=== PATIENT | male | born 1935 | race Caucasian/White ===

== ENCOUNTER 2018-03-16 22:00 | Inpatient (IN) ==
[2018-03-17 00:35] LABS: Anion Gap 15 mmol/L (10-20); BUN (Urea Nitrogen) 28 mg/dL (8.4-25.7); Calc. Creatinine Clearance 0 mL/min (70-130); Calcium 8.5 mg/dL (7.8-10.44); Carbon Dioxide 20 mmol/L (23-31); Chloride 117 mmol/L (98-107); Estimated GFR-MDRD 57; Glucose 167 mg/dL (83-110); Sodium 148 mmol/L (136-145)
[2018-03-17 01:02] LABS: Platelet Count 925 thou/uL (130-400); White Blood Cell (WBC) Count 70.1 thou/uL (4.8-10.8)
[2018-03-17 01:08] LABS: Anisocytosis SLIGHT = 6-15 cells (100X) (0-5/hpf); Band 11 % (5-11); Hemoglobin 9.8 g/dL (14.0-18.0); Lymphocytes 6 % (21-51); MDiff Complete? YES; Mean Corpuscular Hemoglobin 30.3 pg (27.0-31.0); Mean Platelet Volume 8.7 fL (7.4-10.4); Monocytes 4 % (0-10); Neutrophil 71 % (42-75); Polychromasia SLIGHT = 2-3 cells (100X) (0-2/hpf); RBC Distribution Width 17.5 % (11.5-14.5); Red Blood Cell (RBC) Count 3.22 mill/uL (4.70-6.10); Reflex for Review?? YES
[2018-03-17] MEDS ORDERED: Piperacillin/Tazobactam 4.5 GM VIAL ONE (01:21)
[2018-03-17] MEDS ORDERED: Acetaminophen 650 MG Suppository ONE (01:44)
[2018-03-17] MEDS ORDERED: Senokot S 8.6-50 MG TAB PO PRN (02:01)
[2018-03-17] MEDS ORDERED: Acetaminophen 325 MG TAB PO PRN (02:01)
[2018-03-17] MEDS ORDERED: Bisacodyl 5 MG TAB PO PRN (02:01)
[2018-03-17] MEDS ORDERED: Dextrose 5 % And 0.9 % NaCl 1,000 ML IV SCH (02:15)
[2018-03-17] MEDS ORDERED: Dextrose 5% in Water 1,000 ML IV SCH (02:30)
[2018-03-17 03:39] VITALS: BMI 21.9
--- NOTE | 2018-03-17 04:06 | HP ---
CHIEF COMPLAINT: Transfer from [facility] for altered mental status. HISTORY OF PRESENT ILLNESS: The patient is a very pleasant 83-year-old male who is a snf re sident who initially presented to [facility] for altered mental status. I am unable to get a good histo ry from the patient since he is unable to provide me one. However, per documentation per documentati on, the patient is normally more responsive; however, today was found to be less responsive. So, he was taken to [facility] for further evaluation. There was some mentioning that the patient also had fev ers at the snf. The patient at [facility] was initially treated for sepsis, was given vancomyc in and Zosyn and also the patient had a fever of 102 at [facility]. 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 He also had a chest x-ray which indicated no acute findings. However, the patient was found to have a significantly elevated leukocytosis of 76,000 and also had e levated platelets of 1135. At this time, it was also noted that the patient had 3% blasts that were noted in the CBC. The patient was transferred here since [facility] does not have an oncologist. PAST MEDICAL HISTORY: This is all through the records. 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 This is per the PCP's note that was done in 2013. MEDICATIONS: The patient is on hydroxyurea 500 mg once a day, meclizine 25 mg daily, metoprolol 25 m g day, Namenda 10 mg twice a day, Neurontin 300 mg twice a day, simethicone 80 mg daily, thiamine 100 mg daily, tramadol 50 mg daily, allopurinol 150 mg daily, amlodipine 2.5 daily, Aricept 10 mg daily, aspirin 81 mg daily, Claritin 10 mg daily, Cymbalta 60 mg daily, fenofibrate 200 mg daily, folic aci d daily. PAST SURGICAL HISTORY: The patient has a surgical history, unable to get from this patient and also there is nothing mentioned in the charts. REVIEW OF SYSTEMS: Unable to obtain. SOCIAL HISTORY: The patient is unknown since patient is unable to provide me this information. FAMILY HISTORY: Again, I am unable to obtain this information. ADVANCED DIRECTIVE: There is a directive; however, I do not know if this patient is a DNR. There is a Eliseo Boo who is a power of deputy attorney general, phone number is [phone], which I will call. PHYSICAL EXAMINATION: VITAL SIGNS: The patient's temperature is currently 98.8. His blood pressure is 170/80, heart rate of 110, respirations are 16. He is 95% on room air. GENERAL: He is awake, follows commands, but is not oriented x3 at all. HEENT: The patient has significant dry mucous membrane. He does have significant amount of crusting in his mouth. CARDIOVASCULAR: S1, S2 present. No murmurs, rubs or gallops. LUNGS: Clear to auscultation. No rhonchi or wheezes noted. ABDOMEN: Soft, nontender. Bowel sounds are present x2. EXTREMITIES: No edema. Pedal pulses are present x2. NEUROLOGIC: Neurovascular levin, the patient is able to move all four extremities; however, I have no t walked the patient. SKIN: No cuts or lesions are noted. LABORATORY DATA: We had rechecked the lab here which indicated in the CBC: WBCs were 70.1 as compar ed to the one that was done in [facility] which was 76.4. Hemoglobin of 10.4, hemoglobin here was 9.8. His platelets at [facility] was 1135, they were at 925. The specimens for pathology for review, he glass s have blast at [facility]. Chemistry panel: Sodium of 148 and his sodium was 149 at [facility]. Potassi um was 3.8, potassium here was 4.0. His BUN was 32, his BUN here was 28, creatinine of 1.22 and his BNP was 124. He also had a lactic acid which was one at [facility]. Influenza was negative. Urine pro calcitonin was 0.88. Urine indicated he has got some leukocyte esterase, nitrites were negative and wbcs were 1-5. CK was negative. Troponin was negative. ASSESSMENT AND PLAN: The patient is an 83-year-old male who presents to the hospital with altered me ntal status. Initially there was transferred to us from [facility]. 1. Acute metabolic encephalopathy, most likely secondary to his significant leukocytosis. This maikel ent most likely has an underlying malignancy with 3% blasts that was noted in [facility] CBC either CML or AML. He also has elevated platelets. I will start patient on aspirin. He has been on hydroxyure a, which is per the notes stated that he is taking it for the squamous cell carcinoma of the face. W e will continue that. Also, we will consult Oncology. The patient at this time does not need aphere sis. His WBCs is less than 100,000; however, the mental status change is little concerning. The pat ient does follow commands. We will continue to monitor. Also, we will start the patient on some gen tle hydration and we will also give the patient broad spectrum antibiotics. Since he did have a feve r; however, I believe this fever could be secondary to his underlying malignancy. 2. Dehydration. His sodium level is 148. We will start the patient on some D5 water and continue t o monitor. 3. Severe leukocytosis and thrombocytosis. Again this is most likely secondary to underlying malign trip. He did the smear is for pathology for review. He did have 3% blasts that was noted in the CBC that was done at [facility]. We will continue to monitor. We will start patient on aspirin and we sofy l continue the hydroxyurea and also will continue some IV fluids. 4. Deep venous thrombosis prophylaxis. We will put patient on either heparin or Lovenox. The patient currently is a FULL CODE. I will try and see if I can call the snf and also get in touch with a Eliseo Boo, phone number [phone], who is the POA to get a better understandin g of this patient's code status. I do not know if this leukocytosis is new since I do not have a pre vious leukocytosis. I believe this patient has 2 account numbers, I did review his last time when he was here, his WBCs were 23; however, I do not have another CBC in the computer for this patient.
[2018-03-17] MEDS: Piperacillin/Tazobactam 3.375 GM in Sodium Chloride 0.9% 100 ML IVPB SCH ×4 (05:43→23:22)
[2018-03-17 05:46] LABS: Anion Gap 12 mmol/L (10-20); BUN (Urea Nitrogen) 25 mg/dL (8.4-25.7); Calc. Creatinine Clearance 45 mL/min (70-130); Calcium 8.2 mg/dL (7.8-10.44); Carbon Dioxide 20 mmol/L (23-31); Chloride 120 mmol/L (98-107); Estimated GFR-MDRD 67; Glucose 184 mg/dL (83-110); Potassium 3.4 mmol/L (3.5-5.1); Sodium 149 mmol/L (136-145)
[2018-03-17 06:11] LABS: Anisocytosis SLIGHT = 6-15 cells (100X) (0-5/hpf); Band 8 % (5-11); Hemoglobin 8.8 g/dL (14.0-18.0); Lymphocytes 5 % (21-51); MDiff Complete? YES; Mean Corpuscular HGB CONC 29.9 g/dL (32.0-36.0); Mean Corpuscular Hemoglobin 30.4 pg (27.0-31.0); Mean Platelet Volume 8.5 fL (7.4-10.4); Monocytes 11 % (0-10); Neutrophil 74 % (42-75); PLT Morphology Comment Appears Increased; Platelet Count 805 thou/uL (130-400); Polychromasia SLIGHT = 2-3 cells (100X) (0-2/hpf); RBC Distribution Width 17.2 % (11.5-14.5); White Blood Cell (WBC) Count 64.2 thou/uL (4.8-10.8)
[2018-03-17] MEDS: Aspirin 300 MG Suppository PR SCH (08:31)
[2018-03-17] MEDS: Heparin 5,000 UNITS/ML VIAL SC SCH ×3 (08:35→20:21)
[2018-03-17] MEDS ORDERED: Hydroxyurea 500 MG CAP PO SCH (09:00)
[2018-03-17] MEDS ORDERED: Prevnar 13-Val Conj/PF 0.5 ML SYRINGE IM ONE (09:00)
[2018-03-17 10:24] LABS: Reticulocyte Count 3.9 % (0.5-1.5)
--- NOTE | 2018-03-17 11:33 | PDOC.PN ---
- Subjective Encounter Start Date: 03/17/18 Encounter Start Time: 11:25 Subjective: f/u for suspected sepsis and leukemia tx with Vanc/Zosyn as well as -: Hydroxyurea and ASA. Nephew states he is DNR. Baseline severe dementia -: and limited mobility. Poor appetite and po intake at half-way. - Objective Resuscitation Status: Resuscitation Status DNR:Do Not Resuscitate MAR Reviewed: Yes Vital Signs & Weight: Vital Signs (12 hours) Temp Pulse Resp BP Pulse Ox 03/17/18 07:53 97 03/17/18 07:49 96.9 F L 88 18 171/76 H 97 03/17/18 04:04 100 03/17/18 03:46 87 162/69 H 03/17/18 03:34 96.7 F L 94 16 188/79 H 100 Weight Weight 131 lb 11.2 oz I&O: 03/16/18 03/17/18 03/18/18 06:59 06:59 06:59 Intake Total 151 Output Total 150 Balance 1 Result Diagrams: 03/17/18 05:10 03/17/18 05:10 Additional Labs: Laboratory Tests 03/16/18 03/16/18 03/16/18 23:14 23:14 23:14 WBC 70.1 H* Hgb 9.8 L MCV 101.0 H Plt Count 925 H* Retic Count Immature Retic Fraction Sodium 148 H BUN 28 H Creatinine 1.22 Estimated GFR (MDRD) 57 Uric Acid B-Natriuretic Peptide 124.9 H 03/17/18 03/17/18 05:10 05:10 WBC Hgb MCV Plt Count Retic Count 3.9 H Immature Retic Fraction 0.519 H Sodium BUN Creatinine Estimated GFR (MDRD) Uric Acid 5.4 B-Natriuretic Peptide EKG Reviewed by me: Yes (Tele - SR) Phys Exam - Physical Examination Constitutional: NAD opens eyes, states a few words oral mucosa dry HEENT: PERRLA, sclera anicteric Neck: no nodes, no JVD, supple, full ROM Respiratory: no wheezing, no rales, no rhonchi, clear to auscultation bilateral S1, S2 Cardiovascular: RRR, no significant murmur, no rub, gallop Gastrointestinal: soft, non-tender, no distention, positive bowel sounds Musculoskeletal: no edema, pulses present Neurological: moves all 4 limbs A x O x 1 Deviation from normal: poor skin turgor Skin: cap refill <2 seconds Deviation from normal: Gaspar with dark urine Dx/Plan (1) Sepsis Code(s): A41.9 - SEPSIS, UNSPECIFIED ORGANISM Status: Acute Comment: Suspected, continue Vancomycin/Zosyn, await blood/Ucx results, continue IVF's (2) Leukemia Code(s): 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 acute/subacute, Hematology consult, continue Hydroxyurea and ASA, IVF 's, serial CBC (3) LIZZY (acute kidney injury) Code(s): N17.9 - ACUTE KIDNEY FAILURE, UNSPECIFIED Status: Acute Comment: Continue IVF's, avoid nephrotoxic meds and limit contrast exposure (4) Hypernatremia Code(s): E87.0 - HYPEROSMOLALITY AND HYPERNATREMIA Status: Acute Comment: Secondary to dehydration, serial monitoring, increase D5 1/2 NS 125ml/h (5) Dehydration Code(s): E86.0 - DEHYDRATION Status: Acute Comment: Encourage increased free -H2O intake, IVF's (6) Advanced dementia Code(s): F03.90 - UNSPECIFIED DEMENTIA WITHOUT BEHAVIORAL DISTURBANCE Status: Acute (7) Physical deconditioning Code(s): R53.81 - OTHER MALAISE Status: Chronic Comment: PT evaluation, baseline use of wheelchair and 1-2 person assist for transfers - Plan plan discussed w/ family, continue antibiotics, PT/OT, social media specialist, DVT proph w/SCDs Continue supportive mgmt -: Continue Vancomycin/Zosyn -: Increase IVF's 125ml/h -: Medical oncology/hematology consult -: Code Status: DNR confired with MPOA * AM lab: CMP, CBC
--- NOTE | 2018-03-17 11:44 | CON ---
DATE OF CONSULTATION: 03/17/2018 REASON FOR CONSULTATION: Leukocytosis and thrombocytosis. HISTORY: This is an 83-year-old male with a history of Alzheimer disease. He was initiall y seen at the [facility] with fever of 102 and altered mental status. CBC showed WBC of 76,000 with a platelet count of 11.35 and 3% blasts. He was transferred to [facility] because there is no oncologist at [facility]. The patient was started on hydr oxyurea 500 mg daily yesterday. He was not able to provide much history because of impaired mentatio n. Apparently, he had been more responsive in the past in the [facility]. At the present time, th e patient is barely arousable when he is not able to answer any question. Occasionally, he opens his eyes and then closure . PAST MEDICAL HISTORY: From the admitting H&P includes Alzheimer disease, depression, diabetes, gout, hypertension, dyslipidemia, and a squamous cell carcinoma of the skin of the face. CURRENT MEDICATIONS: Aspirin 300 mg p.o. daily, heparin 5000 units subcu t.i.d., hydroxyurea 500 mg p.o. daily, piperacillin/tazobactam q.6 hours; vancomycin 1 gram daily, dose to be adjusted by Sferra. REVIEW OF SYSTEMS: Could not be performed because of patient's mental status. FAMILY AND SOCIAL HISTORY: Rest of the family and social history was also not able to be obtained. PHYSICAL EXAMINATION: GENERAL: The patient is not responding to any questions and is barely arousable. Physical examinati on was limited. HEENT: Unremarkable. LYMPH NODES: Not palpable in cervical, supraclavicular, axillary or inguinal area. CHEST: Clear to percussion and auscultation. CARDIOVASCULAR: Heart S1, S2. No obvious murmur. ABDOMEN: Soft. Bowel sounds were present. EXTREMITIES: Without pedal edema or calf tenderness. NEUROLOGIC: The patient was moving all 4 extremities. He has also is in diaper. LABORATORY AND X-RAY FINDINGS: CBC today showed WBC of 64.2 with hemoglobin of 8.8 and platelet coun t of 805,000. MCV is 101. Differential showed 74% neutrophils, 8 bands, 5 lymphs, 11 monocytes and 2 basophils. A peripheral smear was reviewed. Red cells are slightly macrocytic. Nucleated red jocelyn ls were frequently encountered. White cells are increased in number. There is frequent hypersegment ation of polys. Basophils very easily identifiable and appeared to be more than 2% reported in the d ifferential count. Rare blast-like cells were seen. Platelets are increased in number. Chemistry p rofile: Sodium 149, potassium 3.4, chloride 102, carbon dioxide 20, creatinine 1.06, blood sugar of 184. There are no imaging studies from [facility]. He had CT scan of the head at the [facility] showing ventriculomegaly suggestive of NPH and there was question about abn ormal density in sella turcica. Chest x-ray showed no acute findings. ASSESSMENT AND RECOMMENDATIONS: This patient has myeloproliferative syndrome with elevated white jocelyn l count and platelet count and anemia. He has Alzheimer disease and seems to be at least at this bharathi e bedbound. I am not sure how aggressive one should be. For now, he is on aspirin and I have increa sed his dose of hydroxyurea to 1 gram daily. I have ordered JAK2 mutation analysis and cytogenetics and flow cytometry on peripheral blood. I tried to get hold of Eliseo who has power of securities attorney, but was able to reach only his answering machine on phone. Thanks very much for asking me to participate in this patient's care. He will be followed by Oncolog y Service.
[2018-03-17] MEDS: Dextrose 5% in Water 1,000 ML IV SCH ×2 (12:59→15:35)
[2018-03-17] MEDS: Vancomycin HCl 1 GM in Premix Bag 1 BAG IVPB SCH (20:21)
[2018-03-17] MEDS: Hydroxyurea 500 MG CAP PO SCH (20:21)
[2018-03-18] MEDS: Piperacillin/Tazobactam 3.375 GM in Sodium Chloride 0.9% 100 ML IVPB SCH ×3 (05:12→18:24)
[2018-03-18 05:54] LABS: ALT (SGPT) 13 U/L (8-55); AST (SGOT) 24 U/L (5-34); Albumin 2.9 g/dL (3.4-4.8); Alkaline Phosphatase 139 U/L (40-150); Anion Gap 12 mmol/L (10-20); BUN (Urea Nitrogen) 19 mg/dL (8.4-25.7); Bilirubin, Total 0.8 mg/dL (0.2-1.2); Calc. Creatinine Clearance 45 mL/min (70-130); Calcium 8.2 mg/dL (7.8-10.44); Carbon Dioxide 21 mmol/L (23-31); Chloride 115 mmol/L (98-107); Estimated GFR-MDRD 67; Globulin 2.4 g/dL (2.4-3.5); Glucose 174 mg/dL (83-110); Iron Binding Capacity, Total 221 mcg/dL (261-462); Potassium 3.2 mmol/L (3.5-5.1); Protein, Total 5.3 g/dL (5.8-8.1); Sodium 145 mmol/L (136-145)
[2018-03-18 06:25] LABS: Folate (Folic Acid) 16.9 ng/mL (7.0-31.4)
[2018-03-18] MEDS: Heparin 5,000 UNITS/ML VIAL SC SCH ×3 (08:34→21:05)
[2018-03-18] MEDS: Aspirin 300 MG Suppository PR SCH (08:34)
[2018-03-18] MEDS: Hydroxyurea 500 MG CAP PO SCH (08:34)
[2018-03-18] MEDS: Dextrose 5% in Water 1,000 ML IV SCH ×2 (08:35→15:24)
[2018-03-18 09:27] LABS: Hemoglobin 8.6 g/dL (14.0-18.0); Mean Corpuscular Hemoglobin 30.2 pg (27.0-31.0); Mean Platelet Volume 8.6 fL (7.4-10.4); Platelet Count 764 thou/uL (130-400); Red Blood Cell (RBC) Count 2.83 mill/uL (4.70-6.10); White Blood Cell (WBC) Count 63.8 thou/uL (4.8-10.8)
[2018-03-18 10:07] LABS: Band 9 % (5-11); Lymphocytes 8 % (21-51); MDiff Complete? YES; Metamyelocyte 3 % (0-0); Monocytes 5 % (0-10); Neutrophil 71 % (42-75); Nucleated RBC 2 % (0); PLT Morphology Comment Appears Increased; Polychromasia MODERATE = 3-4 cells (100X) (0-2/hpf); Reflex for Review?? NO; Vacuoles MODERATE
--- NOTE | 2018-03-18 15:05 | PDOC.PN ---
- Subjective Encounter Start Date: 03/18/18 Encounter Start Time: 15:02 Subjective: nsg notes rev, fanny ovn, waves when greeted and interactive but not -: verbalizing; reportedl was verbalizing earlier in the AM - Objective Resuscitation Status: Resuscitation Status DNR:Do Not Resuscitate Vital Signs & Weight: Vital Signs (12 hours) Temp Pulse Pulse Resp BP BP BP 03/18/18 11:16 96.8 F L 75 18 126/60 03/18/18 10:32 77 136/64 03/18/18 07:42 03/18/18 07:39 96.3 F L 76 16 162/73 H 03/18/18 04:00 98.1 F 78 20 130/63 Pulse Ox 03/18/18 11:16 92 L 03/18/18 10:32 03/18/18 07:42 99 03/18/18 07:39 99 03/18/18 04:00 100 Weight Weight 132 lb 9.6 oz I&O: 03/17/18 03/18/18 03/19/18 06:59 06:59 06:59 Intake Total 151 2445 Output Total 150 600 Balance 1 1845 Result Diagrams: 03/18/18 08:54 03/18/18 05:13 Phys Exam - Physical Examination Constitutional: NAD lying in hospital bed HEENT: moist MMs, sclera anicteric Respiratory: no wheezing, no rales, no rhonchi, clear to auscultation bilateral limited anterior exam Cardiovascular: RRR, no significant murmur, no rub Gastrointestinal: soft, positive bowel sounds Musculoskeletal: pulses present Dx/Plan - Plan (1) Sepsis Code(s): A41.9 - SEPSIS, UNSPECIFIED ORGANISM Status: improving Comment: Suspected, continue Vancomycin/Zosyn await blood cx results urine culture NGTD x24hr continue IVF's (2) Leukemia Code(s): 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 acute/subacute, apprec Hematology consult, continue Hydroxyurea and ASA, IVF's, serial CBC pending JIN and cytologies transfer to onc unit (3) LIZZY (acute kidney injury) Code(s): N17.9 - ACUTE KIDNEY FAILURE, UNSPECIFIED Status: improving Comment : Continue IVF's, avoid nephrotoxic meds and limit contrast exposure (4) Hypernatremia Code(s): E87.0 - HYPEROSMOLALITY AND HYPERNATREMIA Status: improving Comment : Secondary to dehydration, serial monitoring, increase D5 1/2 NS 125ml/h (5) Dehydration Code(s): E86.0 - DEHYDRATION Status: improving Comment: Encourage increased free-H2O intake, IVF's (6) Advanced dementia Code(s): F03.90 - UNSPECIFIED DEMENTIA WITHOUT BEHAVIORAL DISTURBANCE Status: overall mentation seems to be somewhat improved compared to initial presentation - suspect acute metabolic encephalopathy superimposed on chronic dementia (7) Physical deconditioning Code(s): R53.81 - OTHER MALAISE Status: Chronic Comment: PT evaluation, baseline use of wheelchair and 1-2 person assist for transfers - Plan overall limited prognosis consult palliative care -: Code Status: DNR Review of Systems - Medications/Allergies Allergies/Adverse Reactions: Allergies Allergy/AdvReac Type Severity Reaction Status Date / Time lisinopril Allergy Verified 03/17/18 03:54 Medications: Current Medications Acetaminophen (Tylenol) 650 mg PO Q4H PRN PRN Reason: Headache/Fever/Mild Pain (1-3) Aspirin (Aspirin) 300 mg [place] DAILY [facility] Last Admin: 03/18/18 08:34 Dose: 300 mg Bisacodyl (Dulcolax) 10 mg PO DAILYPRN PRN PRN Reason: Constipation Heparin Sodium (Porcine) (Heparin) 5,000 units SC TID [facility] Last Admin: 03/18/18 08:34 Dose: 5,000 units Hydroxyurea (Hydrea) 500 mg PO BID [facility] Last Admin: 03/18/18 08:34 Dose: 500 mg Piperacillin Sod/Tazobactam (Sod 3.375 gm/ Sodium Chloride) 100 mls @ 200 mls/ hr IVPB Q6HR [facility] Last Admin: 03/18/18 11:17 Dose: 100 mls Vancomycin HCl 1 gm/ Device 200 mls @ 200 mls/hr IVPB 2100 [facility] Last Admin: 03/17/18 20:21 Dose: 200 mls Dextrose/Water (D5w) 1,000 mls @ 125 mls/hr IV .Q8H [facility] Last Admin: 03/18/18 08:35 Dose: 1,000 mls Miscellaneous Medication (Pharmacy To Dose) 1 each IVPB ONE PRN PRN Reason: Pharmacy to dose Stop: 03/27/18 02:19 Senna/Docusate Sodium (Senokot S) 2 tab PO BID PRN PRN Reason: Constipation
--- NOTE | 2018-03-18 19:14 | PRG ---
DATE OF SERVICE: 03/18/2018 This patient has myeloproliferative syndrome with leukocytosis and thrombocythemia. I discussed his situation with Eliseo Maldonado, who has the power of full stack engineer. This discussion took place on 03/17/2018. The patient has Alzheimer's disease and he is bedbound. The hematologic issues were explained by me to Eliseo Maldonado. Eliseo told me that the patient is DNR and he did not want any aggressive measures. I think it is reasonable not to treat his hematologic issues because of the Alzheimer's disease and t he fact that the patient is essentially bedridden. Eliseo Maldonado was in agreement with this recommendat ion. Accordingly, I have discontinued daily CBC and have also discontinued hydroxyurea.
[2018-03-18 20:45] LABS: Vancomycin, Trough 10.2 ug/mL
[2018-03-18] MEDS ORDERED: Vancomycin HCl 1.25 GM in Sodium Chloride 0.9% 250 ML 250 ML IVPB SCH (21:15)
[2018-03-18] MEDS: Vancomycin HCl 1 GM in Premix Bag 1 BAG IVPB SCH (21:19)
[2018-03-19] MEDS: Piperacillin/Tazobactam 3.375 GM in Sodium Chloride 0.9% 100 ML IVPB SCH ×5 (00:04→23:01)
[2018-03-19] MEDS: Dextrose 5% in Water 1,000 ML IV SCH ×3 (03:00→21:41)
[2018-03-19] MEDS: Aspirin 300 MG Suppository PR SCH (08:39)
[2018-03-19] MEDS: Heparin 5,000 UNITS/ML VIAL SC SCH ×3 (08:39→20:18)
[2018-03-19] MEDS ORDERED: Vancomycin HCl 1 GM in Premix Bag 1 BAG IVPB SCH (09:00)
[2018-03-19] MEDS ORDERED: traMADol HCl 50 MG TAB PO PRN (12:46)
[2018-03-19] MEDS ORDERED: Simethicone Chewable 80 MG TAB PO PRN (12:46)
--- NOTE | 2018-03-19 13:22 | PRG ---
DATE OF SERVICE: 03/19/2018 SUBJECTIVE: The patient was seen and examined at the bedside. He is doing better. We did not notic e any fever. He tolerates his foot without any significant problems. OBJECTIVE: VITAL SIGNS: Blood pressure is 168/73, pulse is 73, respiratory rate is 20, O2 saturations 100% on r oom air. HEENT: His head is atraumatic, normocephalic. Eyes, sclerae are nonicteric. Conjunctivae are pinki sh. Oral mucosa is moist. NECK: Supple. LUNGS: Clear. HEART: S1, S2, somewhat irregular. No S3, no S4. ABDOMEN: Soft, nontender, nondistended. Bowel sounds are present. EXTREMITIES: No clubbing, cyanosis or edema. NEUROLOGIC: He is alert and oriented x1. There are not any motor deficits present. LABORATORY DATA: None today. MICROBIOLOGY: Urine culture, no growth. Blood cultures obtained from [facility], no growth so far. IMPRESSION AND PLAN: 1. Elevated white count and elevated platelet count, related to myelodysplastic syndrome. The patie nt was seen by Dr. Rubio who stopped hydroxyurea after he discussed the case with power of attorne y of this patient. 2. Hypernatremia, improved. 3. Dehydration, improved. 4. Advanced dementia, stable. 5. Fever of unclear etiology. So far, blood cultures are negative. Urine culture negative. I will stop his vancomycin and continue Zosyn and most likely switch him to oral antibiotic tomorrow. We w ill continue code status DNR. Consult palliative care.
[2018-03-19] MEDS: Gabapentin 300 MG CAP PO SCH (20:18)
[2018-03-19] MEDS ORDERED: DULoxetine 60 MG CAP PO SCH (21:00)
[2018-03-19] MEDS ORDERED: Fenofibrate Nanocrystallized 145 MG TAB PO SCH (21:00)
[2018-03-20] MEDS: Dextrose 5% in Water 1,000 ML IV SCH ×2 (03:32→07:00)
[2018-03-20] MEDS: Piperacillin/Tazobactam 3.375 GM in Sodium Chloride 0.9% 100 ML IVPB SCH ×2 (05:26→12:22)
[2018-03-20 08:36] VITALS: BP 171/75; TEMP 97.5
[2018-03-20] MEDS ORDERED: Donepezil HCl 10 MG TAB PO SCH (09:00)
[2018-03-20] MEDS ORDERED: Folic Acid 1 MG TAB PO SCH (09:00)
[2018-03-20] MEDS ORDERED: Metoprolol Tartrate 50 MG TAB PO SCH (09:00)
[2018-03-20] MEDS ORDERED: Amlodipine 5 MG TAB PO SCH (09:00)
[2018-03-20] MEDS ORDERED: Allopurinol 300 MG TAB PO SCH (09:00)
[2018-03-20] MEDS: Heparin 5,000 UNITS/ML VIAL SC SCH (09:36)
[2018-03-20] MEDS: Gabapentin 300 MG CAP PO SCH (09:37)
[2018-03-20] MEDS: Aspirin 300 MG Suppository PR SCH (09:38)
--- NOTE | 2018-03-20 23:36 | DIS ---
DATE OF ADMISSION: 03/17/2018 DATE OF DISCHARGE: 03/20/2018 CONSULTANTS: Dr. Rubio, oncology service. FINAL DIAGNOSES: 1. Elevated white cell count and elevated platelet count, which is felt to be secondary to myelodysp lastic syndrome. 2. Hyponatremia, corrected. 3. Dehydration, corrected. 4. Advanced dementia. 5. Fever of unclear etiology with negative blood cultures and urine cultures. HOSPITAL COURSE: The patient is an 83-year-old male, a custodial resident who initially presented to [facility] for altered mental status. Apparently at the custodial, he was found to be less responsive. Also, he had fevers at the custodial. At the [facility], he was treated for sepsis, wa s given vancomycin and Zosyn and apparently his temperature was up to 102. While at the [facility] emergenc y room, his chest x-ray did not show any acute findings. His CT of the head was done, which showed s ome ventriculomegaly. Also, his white cell count was elevated at 76,000 and platelet count was up to 1135. The patient, but since there is no Oncology Service provided at the [facility], he was sent to the [facility] Emergency Room for further evaluation and admission. At the time of evaluation, h is hemoglobin was 10.4. His sodium was 148, potassium 3.8, BUN was 32, creatinine 1.22. BNP was 124 . Influenza was negative. Urine procalcitonin was 0.88. His urinalysis did not show any acute infe ction. Patient was diagnosed with acute metabolic encephalopathy of unclear etiology. There was arun picion that he might have sepsis, since his white count was elevated and he had some fever. He was p laced on D5 water for his dehydration and Oncology consultation was requested with Dr. Rubio, who was oncall of today. Oncologist did not recommend any aggressive treatment of his condition, after h e talked to a person who has power of ip technology transactions attorney over the patient, Mr. Eliseo Gillette, who expressed his w illing that to keep the patient DNR and not to be aggressive with the treatment. His hydroxyurea was stopped. His mental condition is back to normal. During this hospitalization, he did not have any high temperature, the highest temperature was 98.5. He did not have any pulmonary problems suggestiv e of pneumonia. He is doing well. He is tolerating food without any problems. He is getting discha rged back to the custodial after he is seen and evaluated. He is switched to levofloxacin for add itional 5 days. He is going to have with his primary care physician in 1 to 2 days. Medications at the time of discharge as previously taken and the discharge time spent on this is less than 30 minute s.
[2018-03-21] MEDS ORDERED: Aspirin 325 MG TAB PO SCH (09:00)
== END 2018-03-20 14:18 | DRG 811 ==
LOC: ERS 22:00 → 2NO 03-17 03:30 → ONC 03-18 17:36
PROVIDERS: ADMIT Internal Medicine; ATTEND Internal Medicine
DX: D46.9 Myelodysplastic syndrome, unspecified (principal); G93.41 Metabolic encephalopathy; C95.90 Leukemia, unspecified not having achieved remission; N17.9 Acute kidney failure, unspecified; E87.0 Hyperosmolality and hypernatremia; H33.20 Serous retinal detachment, unspecified eye; E87.1 Hypo-osmolality and hyponatremia; E86.0 Dehydration; Z66 Do not resuscitate; G30.9 Alzheimer's disease, unspecified; F02.80 Dementia in other diseases classified elsewhere, unspecified severity, without behavioral disturbance, psychotic disturbance, mood disturbance, and anxiety; Z51.5 Encounter for palliative care; F32.9 Major depressive disorder, single episode, unspecified; E11.9 Type 2 diabetes mellitus without complications; M10.9 Gout, unspecified; I10 Essential (primary) hypertension; E78.5 Hyperlipidemia, unspecified; Z74.01 Bed confinement status; C44.320 Squamous cell carcinoma of skin of unspecified parts of face
CPT/HCPCS: 36415; 80048; 80053; 80202; 81270; 82607; 82728; 82746; 83550; 83880; 84550; 85025; 85046; 85060; 87086; 88184; 88237; 90471; 90670; 93005; 96365; G0009; G8978-GP-CM; G8979-GP-CL; G8987-GO-CM; G8988-GO-CM; G8989-GO-CM; G8996-GN-CK; G8997-GN-CK; J1644; J2543; J3370; J7050